=== PATIENT | female | born 1990 | race Two or more races ===

== ENCOUNTER 2017-05-02 09:47 | Emergency (ER) | payer BC ==
[2017-05-02 10:07] VITALS: BP 120/83
--- NOTE | 2017-05-02 10:16 | EDM.PDOC ---
ED HPI GENERAL MEDICAL PROBLEM - General Chief Complaint: Chest Pain Stated Complaint: CHEST PAIN X 1 WEEK Time Seen by Provider: 05/02/17 10:15 - History of Present Illness INITIAL COMMENTS - FREE TEXT/NARRATIVE: 26-year-old female presents emergency room with chest pain. This pain has been getting progressively worse over the last week it comes and goes seems to be aggravated by picking up her 37 pound child. She usually carries her with her left arm. Denies any other trauma. She's had no recent illnesses no significant cough no fevers or chills has been otherwise doing well she denies any heartburn. Describes the pain is sharp left anterior chest. 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 Denies: Shortness of Breath Cardiovascular: Reports: Chest Pain GI/Abdominal: Reports: No Symptoms ED EXAM, GENERAL - Physical Exam Exam: See Below Exam Limited By: No Limitations General Appearance: Alert, No Apparent Distress Head: Atraumatic, Normocephalic Neck: Normal Inspection, Supple, Non-Tender, Full Range of Motion. No: Lymphadenopathy (L), Lymphadenopathy (R) Respiratory/Chest: No Respiratory Distress, Lungs Clear, Normal Breath Sounds Cardiovascular: Regular Rate, Rhythm, No Edema, No Murmur GI/Abdominal: Normal Bowel Sounds, Soft, Non-Tender Back Exam: Normal Inspection. No: CVA Tenderness (L), CVA Tenderness (R) EKG INTERPRETATION EKG Date: 05/02/17 Rhythm: NSR [place]: Normal P-Wave: Present QRS: Normal ST-T: Normal QT: Normal Comparison: NA - No Prior EKG EKG Interpretation Comments: Normal Course - Vital Signs Last Recorded V/S: Last Vital Signs Temp 36.9 C 05/02/17 10:03 Pulse 75 05/02/17 10:03 Resp 12 05/02/17 10:03 BP 120/83 05/02/17 10:03 Pulse Ox 100 05/02/17 10:03 - Orders/Labs/Meds Orders: Active Orders 24 hr Category Date Time Status EKG Documentation Completion [RC] ASDIRECTED Care 05/02/17 10:01 Active EKG 12 Lead [EK] Stat Ther 05/02/17 10:01 Ordered - Re-Assessments/Exams Free Text/Narrative Re-Assessment/Exam: 05/02/17 11:29 Chest x-ray is unremarkable. At this point it is possible her discomfort could be GI in origin. Think is mostly muscle skeletal should be started on famotidine 20 mg twice daily and for the next couple of days will attempt Tylenol. She gets no relief with Tylenol after several days she can try ibuprofen. Departure - Departure Time of Disposition: 11:30 Disposition: Home, Self-Care 01 Clinical Impression: Chest wall discomfort, Atypical chest pain Referrals: PCP,None [Ordering Only Provider] - Forms: ED Department Discharge Additional Instructions: Return to the emergency room with any questions or problems or worsening symptoms. Follow up in the clinic early next week for recheck. Start famotidine 20 mg twice daily in case this is coming from your stomach. Start Tylenol 2 extra strength Tylenol every 6-8 hours as needed for discomfort. After several days if the Tylenol is not helping try Aleve or ibuprofen. - My Orders Last 24 Hours: My Active Orders 05/02/17 10:01 EKG Documentation Completion [RC] ASDIRECTED EKG 12 Lead [EK] Stat - Assessment/Plan Last 24 Hours: My Active Orders 05/02/17 10:01 EKG Documentation Completion [RC] ASDIRECTED EKG 12 Lead [EK] Stat
--- NOTE | 2017-05-02 11:11 | CR ---
Chest: Two views of the chest were obtained. Comparison: No prior chest x-ray. Heart size and mediastinum are normal. Lungs are clear. Minimal scoliosis is noted. Impression: 1. Minimal scoliosis. Nothing acute is seen. Diagnostic code #2
== END 2017-05-02 12:00 | disposition home or self-care (01) ==
LOC: JD.ED 09:47
DX: R07.89 Other chest pain (principal); E03.9 Hypothyroidism, unspecified
CPT/HCPCS: 71020; 71020-26; 93005; 93010; 99284; 99284-25

== ENCOUNTER 2018-07-11 11:20 | Emergency (ER) | payer BC ==
[2018-07-11 11:32] VITALS: BP 104/69
--- NOTE | 2018-07-11 12:12 | EDM.PDOC ---
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 She is 18 weeks and 1 day . She's been sick with an upper respiratory tract infection with cough cold and apparently negative influenza testing. Her son and her both came down with the same illness. Coughing appears to aggravated the lower abdominal musculature as well as likely round ligament strain. She states for a while she could not hardly bend over or standing back up. She states she has not felt the baby move in the last 3-4 days. She called her OB and they sent her to the ED for evaluation. She's had no bleeding per vagina. He states she doesn't feel as time no nausea or breast tenderness. She is 2 para 1. Onset: Gradual Onset Date: 07/08/18 Duration: Day(s): (Decreased movement or movement not well appreciated for the last 4 days) Location: Reports: Abdomen (Decreased movement appreciated by mom over the last 4 days) Quality: Reports: Other Severity: Moderate (Initially quite significant diffuse lower abdominal pain from coughing so much but better today.) Improves with: Reports: Rest Worsens with: Reports: Movement Context: Reports: Other (Has been ill with upper spider tract infection with harsh paroxysmal cough and sputum production). Denies: Activity (Moving around standing and stretching makes her have lower abdominal discomfort in the distribution of the round ligaments.), Exercise, Lifting, Sick Contact, Trauma Associated Symptoms: Reports: Cough, cough w sputum, Fever/Chills, Other (Or throat which is getting better.). 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 He is nearly 3 years old) LMP (Approximate): > 3 Months (Early 18 weeks and 1 day by dates) Endocrine/Metabolic History: Reports: Hypothyroidism Social & Family History - Tobacco Use Smoking Status *Q: Never Smoker - Caffeine Use Caffeine Use: Reports: Tea - Living Situation & Occupation Living situation: Reports: Occupation: Unemployed ED ROS GENERAL - Review of Systems Review Of Systems: See Below Constitutional: Reports: Fever, Fatigue, Other (Diet is improving.). Denies: Chills, Malaise (Initial illness 5 days ago better now.), Weakness HEENT: Reports: Other (Magda nasally congested) Respiratory: Reports: Cough (Cough mostly nonproductive.) Cardiovascular: Reports: No Symptoms Endocrine: Reports: No Symptoms GI/Abdominal: Reports: Abdominal Pain (Appears lower abdominal pain which made it difficult to bend over and stand back up due to pain. Better today. Suspect strain of the round ligaments from coughing so much when she was ill.) : Reports: Frequency, Other Musculoskeletal: Reports: No Symptoms (Is currently 18 weeks 1 day by dates.) Skin: Reports: No Symptoms Neurological: Reports: No Symptoms, Change in Speech Hematologic/Lymphatic: Reports: No Symptoms Immunologic: Reports: No Symptoms ED EXAM - Physical Exam Exam: See Below Exam Limited By: No Limitations General Appearance: Alert, WD/WN, No Apparent Distress Respiratory/Chest: No Respiratory Distress, Lungs Clear, Normal Breath Sounds, No Accessory Muscle Use Cardiovascular: Normal Peripheral Pulses, Regular Rate, Rhythm, No Edema, No Gallop, No Murmur, No Rub GI/Abdominal Exam: Normal Bowel Sounds, Soft, Non-Tender, No Organomegaly, Other (She is . Fundus is at the 18 week marked just below the umbilicus by about 2 cm. There is some round ligament tenderness on palpation of the uterus.) Fundal Height In cm: 18 Heart Tones: Present Heart Tones per Min: 158 Extremities: Normal Inspection, Normal Range of Motion, Non-Tender, No Pedal Edema Neurological: Alert, Oriented, CN II-XII Intact, Normal Cognition, Normal Gait Course - Vital Signs Last Recorded V/S: Last Vital Signs Temp 36.6 C 07/11/18 11:30 Pulse 86 07/11/18 11:30 Resp 20 07/11/18 11:30 BP 104/69 07/11/18 11:30 Pulse Ox 98 07/11/18 11:30 - Radiology Interpretation Free Text/Narrative:: 27-year-old female presents to the ED concerned with diffuse lower abdominal pain that seemed to come on with her upper respiratory tract infection and cough over the last 10 days. She states she appreciates very little movement or multilobar for the last 4 days. Of note she is on 18 weeks gestation and therefore movement is difficult to appreciate at this stage. Tablet 2 para 1. On examination she clinically is 18 weeks . There is some tenderness around ligaments were the inserted into the uterus. I suspect this was a source for pain. Ultrasound done at the bedside reveals the fetus to be doing well with activity appreciated of the limbs and good heart tones at 158-1 62/m. Parents reassured. Treatment required. Follow-up with HEEL COMPRESSOR as planned Departure - Departure Time of Disposition: 12:08 Disposition: Home, Self-Care 01 Condition: Fair Clinical Impression: Second trimester - Discharge Information Referrals: Michelle Acevedo MD [Primary Care Provider] - Forms: ED Department Discharge Additional Instructions: Evaluation the emergency room today in regards to decreased activity appreciated since you've been ill with upper spine Vicente tract infection. For your 18 weeks and 1 day by dates. An ultrasound done in the ED shows the fetus to be active with good heart tones in the 158-162 range. Placenta is in the normal position of the posterior wall of the fundus with no sign of intra- uterine hemorrhage. All looks well at this time. Follow-up with your OB-[facility] as planned. Nicola pain may be secondary to coughing so much with strain of the round ligaments which help support the uterus is becomes a abdominal organ.
== END 2018-07-11 12:19 | disposition home or self-care (01) ==
LOC: JD.ED 11:20
DX: O99.512 Diseases of the respiratory system complicating pregnancy, second trimester (principal); J06.9 Acute upper respiratory infection, unspecified; Z3A.18 18 weeks gestation of pregnancy
CPT/HCPCS: 99282; 99284-25